=== PATIENT | male | born 1980 | race Caucasian/White ===

== ENCOUNTER 2023-08-16 07:00 | Outpatient (CLI) | payer BC, SELFPAY ==
--- NOTE | ~2023-08-16 | MR_ITS ---
MRI of the lumbar spine Clinical History: Radiculopathy Technique: Axial T2-weighted images, and sagittal T1-weighted, T2-weighted, and T2 fat-sat images wer e acquired. Findings: There is no fracture or sublocation lumbar spine. Vertebral bodies maintain normal height a nd alignment. No bone marrow signal abnormality seen. At L1-L2, there is no disc bulge or herniation. There is mild facet arthropathy. No central canal joshua nosis or neural foraminal narrowing. L2-L3, there is mild disc desiccation, with minimal disc bulge and mild facet arthropathy. No central canal stenosis. There is minimal left neural foraminal narrowing. Right neural foramen preserved. At L3-L4, there is mild disc desiccation. There is mild disc bulge with mild to moderate facet arthro lyubov. No central canal stenosis. There is mild to moderate bilateral neural foraminal narrowing. At L4-L5, there is disc bulge with superimposed central disc protrusion, and mild to moderate facet a rthropathy. There is minimal central canal stenosis. There is moderate left neural foraminal narrowin g. Right neural foramen preserved. Possible impingement of the descending left-sided L5-S1 level nerv e root by the disc protrusion. At L5-S1, there is no disc bulge or herniation. There is moderate facet arthropathy. No central canal stenosis or neural foraminal narrowing. Paravertebral soft tissues are unremarkable. Impression: Moderate degenerative spondylosis at L4-L5, as detailed above. Mild degenerative changes in the remainder of the lumbar spine, as above. Reviewed, dictated and finalized at [facility]. Impression: Moderate degenerative spondylosis at L4-L5, as detailed above. Mild degenerative changes in the remainder of the lumbar spine, as above.
== END 2023-08-16 07:01 ==
PROVIDERS: Visit Provider Physical Medicine & Rehabilitation Pain Medicine
DX: M47.896 Other spondylosis, lumbar region (principal)
CPT/HCPCS: 72148